=== PATIENT | female | born 1950 | race Caucasian/White ===

== ENCOUNTER 2016-07-24 22:16 | Emergency (ER) | payer MEDICARE ==
[2016-07-24] MEDS ORDERED: IOPAMIDOL 300 (61%) 150 ML VIAL IV ONE (22:17)
[2016-07-24] MEDS ORDERED: LACTATED RINGERS 1,000 ML ONE (22:59)
[2016-07-24] MEDS ORDERED: HYDROMORPHONE HCL 0.5 MG/0.5 ML SYRINGE ONE ×2 (22:59→23:01)
[2016-07-24 23:01] LABS: ABSOLUTE NEUTROPHIL COUNT 6.7 K/mm3 (1.8-7.7); BASO % 0.3 % (0.2-1.0); EOS % 0.2 % (0.9-2.9); HEMATOCRIT 41.5 % (37.0-47.0); HEMOGLOBIN 13.9 gm/l (12.0-16.0); IMM NEUT% 0.2 % (0-1); LYMPH # 3.4 (1.0-4.8); LYMPH % 31.6 % (15-45); MEAN CELL VOLUME 90.2 fl (81.0-99.0); MEAN CORPUSCULAR HEMOGLOBIN 30.2 pg (27.0-31.0); MEAN CORPUSCULAR HGB CONC 33.5 g/dl (33.0-37.0); MEAN PLATELET VOLUME 10.7 fl (7.4-10.4); MONO # 0.5 (0.0-0.8); MONO % 4.7 % (4-12); PLATELET COUNT 308 K/mm3 (130-400); RED CELL DISTRIBUTION WIDTH 13.2 % (11.5-14.5)
[2016-07-24 23:17] LABS: ALB/GLOB RATIO 1.5 (>1.0); CALCIUM 9.2 mg/dL (8.6-10.3)
[2016-07-25] MEDS ORDERED: LACTATED RINGERS 1,000 ML ONE (01:02)
[2016-07-25] MEDS ORDERED: ONDANSETRON 4 MG/2ML 2 ML VIAL ONE (02:21)
[2016-07-25] MEDS ORDERED: PROMETHAZINE HCL 25 MG TABLET ONE (04:20)
--- NOTE | 2016-07-25 08:07 | CT ---
Exam Type: ABD/PELVIS W/ CON Date and Time: 07/24/2016 11:32 PM Clinical information: Abdomen pain with vomiting. Comparison: None Procedure: Imaging device: [employer] Aqu[employer] [address] scanner 1 mm axial images were obtained through the abdomen and pelvis. Stacked reconstructed 3, 4 and 5 mm images were photographed in the axial coronal and sagittal planes. No oral contrast was utilized for this examination. 125 ml of Isovue-300 was injected intravenously. Exam: with intravenous contrast. FINDINGS: Lung bases: There is evidence of bibasilar atelectasis. No effusion or pneumothorax is visualized. Liver: The liver is of diffusely decreased attenuation when compared to the splenic parenchyma. There are least 3 low-attenuation foci seen within the left and right hepatic lobes with the largest within the posterior right lobe demonstrating a Hounsfield attenuation value of 8 Hounsfield units. This is most consistent with an hepatic cyst. Spleen: The spleen is homogeneous and does not appear to be enlarged. Gallbladder: Normal without enlargement or evidence of adjacent inflammatory changes. Pancreas: Normal without enlargement or evidence of adjacent inflammatory changes. Adrenal glands: Normal without enlargement or evidence of adjacent inflammatory changes. Abdominal aorta: Atherosclerotic vascular calcification is present. There is no focal aneurysm visualized. Kidneys: Mild prominence of the right renal collecting system is observed with a normal caliber of the right ureter, likely reflecting an extrarenal pelvis. The renal enhancement is symmetric. Bowel structures: Distal colonic diverticulosis is present with no associated inflammatory stranding observed to suggest the presence of diverticulitis. A large hiatal hernia is present. Within the anterior aspect of the right mid abdomen on axial image #45, there is a segmented area of mesenteric fat measuring 2.9 x 2.4 cm in size with subtle peripheral calcification. Considerations include an intra-abdominal lipoma/liposarcoma or possibly an area of prior fat necrosis. Appendix: The appendix is well-visualized and appears to be of normal caliber. No periappendiceal inflammatory changes or CT findings of appendicitis are currently observed. Bladder: The bladder is of normal contour. No wall thickening or significant distention is observed. Hernia: No abdominal wall or inguinal hernia is visualized on this examination. Adenopathy: No significant enlarged adenopathy is visualized. Osseous structures: No discrete osseous abnormalities are identified. Pelvic structures: The uterus is of irregular contour which may reflect underlying uterine fibroids. IMPRESSION: 1. A normal appearance of the appendix without CT evidence of appendicitis. 2. Distal colonic diverticulosis without evidence to suggest diverticulitis. 3. A 2.9 cm focus of segment of fat within the anterior right mid abdominal mesentery with peripheral calcification. Considerations would include residua of prior fat necrosis, or possibly a lipoma/low-grade liposarcoma. 4. Evidence of prior granulomatous disease with a right basilar calcified granuloma. 5. A large hiatal hernia. 6. Findings most commonly associated with diffuse fatty infiltration of the liver with probable hepatic cysts. 7. A normal appearance of the appendix without CT evidence of appendicitis. 8. A probable fibroid uterus. 9. Findings most consistent with a right sided extrarenal pelvis. The findings were called to the emergency room at 0038 hours, 07/25/2016, by [facility].
== END 2016-07-25 05:02 | disposition home or self-care (01) ==
LOC: ED 22:16
DX: R11.2 Nausea with vomiting, unspecified (principal); R10.84 Generalized abdominal pain
CPT/HCPCS: 83690; 85025; 80053; 84484; 74177; 96375; 99284 ×2; 96374; 96361; A9270; J2405; J7120 ×2; Q9967; J1170